=== PATIENT | female | born 1975 | race Caucasian/White ===

== ENCOUNTER 2019-02-14 13:27 | Emergency (ER) | payer OTHER ==
[2019-02-14 13:42] VITALS: BP 122/83; PULSE 73; TEMP 99; BMI 22.6
[2019-02-14] MEDS ORDERED: ACETAMINOPHEN 500 MG TABLET (FP) PO ONE (14:37)
[2019-02-14] MEDS ORDERED: ACETAMINOPHEN 325 MG TABLET (FP) ONE (15:02)
--- NOTE | 2019-02-14 15:34 | PDOC ---
History of Present Illness - General Chief Complaint: Vaginal Bleeding Stated Complaint: VAGINAL BLEEDING Time Seen by Provider: 02/14/19 14:27 History Source: Patient Exam Limitations: No Limitations - History of Present Illness Travel History: No Initial Comments: 02/14/19 15:34 43-year-old female approximately 7 weeks presents the emergency room for evaluation of vaginal spotting since . 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 Patient denies any urinary complaints, nausea, fever, chills or weakness. Patient also denies back pain presently. Timing/Duration: reports: constant Quality: reports: mild, cramping Abdominal Pain Onset Location: reports: suprapubic Pain Radiation: reports: no radiation Activities at Onset: reports: none Aggravating Factors: improves with: None Alleviating Factors: improves with: None Past History - Travel Traveled outside of the country in the last 30 days: No Close contact w/someone who was outside of country & ill: No - Past Medical History Allergies/Adverse Reactions: Allergies Allergy/AdvReac Type Severity Reaction Status Date / Time No Known Allergies Allergy Verified 02/14/19 13:42 Home Medications: Ambulatory Orders Levothyroxine [Synthroid -] 88 mcg PO DAILY 02/14/19 COPD: No Thyroid Disease: Yes - Suicide/Smoking/Psychosocial Hx Smoking History: Never smoked Have you smoked in the past 12 months: No Information on smoking cessation initiated: No Hx Alcohol Use: No Drug/Substance Use Hx: No Patient Lives Alone: No Lives with/in: spouse/SO Review of Systems - Review of Systems Able to Perform ROS?: Yes Constitutional: No: Symptoms Reported HEENTM: No: Symptoms Reported ABD/GI: Yes: Abdominal cramping : Yes: Discharge (vaginal spotting) Integumentary: No: Symptoms Reported Neurological: No: Symptoms reported *Physical Exam - Vital Signs Last Vital Signs Temp Pulse Resp BP Pulse Ox 99 F 73 18 122/83 100 02/14/19 13:40 02/14/19 13:40 02/14/19 13:40 02/14/19 13:40 02/14/19 13:40 - Physical Exam General Appearance: Yes: Nourished, Appropriately Dressed. No: Apparent Distress HEENT: negative: Pale Conjunctivae Neck: positive: Supple Respiratory/Chest: positive: Lungs Clear, Normal Breath Sounds. negative: Respiratory Distress, Accessory Muscle Use Cardiovascular: positive: Regular Rhythm, Regular Rate. negative: Murmur Female Pelvic Exam: positive: cervical os closed, vaginal bleeding (dark red/ brown in scant amount). negative: adnexal tenderness Gastrointestinal/Abdominal: negative: Soft, Tenderness Extremity: positive: Normal Inspection Integumentary: positive: Normal Color, Warm, Moist Neurologic: positive: Motor Strength 5/5 (ambulatory) ED Treatment Course - LABORATORY CBC & Chemistry Diagram: 02/14/19 15:00 02/14/19 15:00 - RADIOLOGY Radiology Studies Ordered: Category Date Time Status TRANSVAGINAL US PREG [US] Stat Ultrasound 02/14/19 14:32 Ordered Medical Decision Making - Medical Decision Making 02/14/19 15:18 cc: Vaginal spotting since now with lower abdominal pain. Approximate 7 weeks based on LMP. Patient has her first QU[facility]Y WORKER appointment this upcoming Friday at [facility] Exam no abdominal tenderness scant dark red/brown blood noted in vault no adnexal tenderness Plan: Labs, urine Tylenol and ultrasound ordered *DC/Admit/Observation/Transfer Diagnosis at time of Disposition: Threatened - Discharge Dispostion Disposition: HOME Condition at time of disposition: Stable - Referrals Referrals: Aayush Stewart MD [Primary Care Provider] - - Patient Instructions Printed Discharge Instructions: DI for Threatened Additional Instructions: Your Discharge Instructions: You must call primary care physician within 24 hours to arrange follow-up. Return to the Emergency Department with any new, persistent or worsening symptoms, for fever, chills, SOB, dizziness or any other concerning changes that may occur. Copies of the labs have been provided for the COMPOUNDING ASSISTANT appointment. - Post Discharge Activity
[2019-02-14 15:56] LABS: BASO % 0.3 % (0-2.0); EOS % 1.5 % (0-4.5); HEMATOCRIT 34.9 % (32.4-45.2); HEMOGLOBIN 11.7 GM/dL (10.7-15.3); LYMPH % 30.2 % (8-40); MCH 30.6 pg (25.7-33.7); MCHC 33.6 g/dl (32.0-36.0); MEAN CELL VOLUME 91.2 fl (80-96); MEAN PLT VOLUME 7.9 fl (7.5-11.1); MONO % 5.9 % (3.8-10.2); NEUT % 62.1 % (42.8-82.8); PLATELET COUNT 252 K/MM3 (134-434); RBC 3.83 M/mm3 (3.60-5.2); RDW 13.4 % (11.6-15.6); WHITE BLOOD COUNT 6.8 K/mm3 (4.0-10.0)
[2019-02-14 16:04] LABS: EPI CELLS 2.7 /HPF (0-5/HPF); HYALINE CASTS 0 /lpf (0-8); PH,URINE 6.5 (5.0-8.0); URINE APPEARANCE CLEAR; URINE BACTERIA 70.2 /hpf (NEGATIVE); URINE BILIRUBIN NEGATIVE (NEGATIVE); URINE COLOR YELLOW; URINE GLUCOSE (UA) NEGATIVE (NEGATIVE); URINE KETONE NEGATIVE (NEGATIVE); URINE LEUK ESTERASE NEGATIVE (NEGATIVE); URINE NITRITE NEGATIVE (NEGATIVE); URINE PROTEIN NEGATIVE (NEGATIVE); URINE RBC 7 /hpf (0-4); URINE UROBILINOGEN 0.2 mg/dL (0.2-1.0); URINE WBC 2 /hpf (0-5)
[2019-02-14 16:20] LABS: BILIRUBIN,TOTAL 0.4 mg/dL (0.2-1); BLOOD UREA NITROGEN 11.4 mg/dL (7-18); CALCIUM 9.5 mg/dL (8.5-10.1); CREATININE 0.9 mg/dL (0.55-1.3); POTASSIUM 3.8 mmol/L (3.5-5.1)
--- NOTE | 2019-02-14 17:47 | PDOC ---
*Physical Exam - Vital Signs Last Vital Signs Temp Pulse Resp BP Pulse Ox 99 F 73 18 122/83 100 02/14/19 13:40 02/14/19 13:40 02/14/19 13:40 02/14/19 13:40 02/14/19 13:40 ED Treatment Course - LABORATORY CBC & Chemistry Diagram: 02/14/19 15:00 02/14/19 15:00 - ADDITIONAL ORDERS Additional order review: Laboratory Results 02/14/19 02/14/19 02/14/19 15:00 15:00 15:00 Sodium 137 Potassium 3.8 Chloride 105 Carbon Dioxide 28 Anion Gap 4 L BUN 11.4 Creatinine 0.9 Est GFR (CKD-EPI)AfAm 90.13 Est GFR (CKD-EPI)NonAf 77.76 Random Glucose 122 H Calcium 9.5 Total Bilirubin 0.4 AST 17 ALT 25 Alkaline Phosphatase 49 Total Protein 8.0 Albumin 4.0 Beta HCG, Quant 4610.7 Urine Color Yellow Urine Appearance Clear Urine pH 6.5 Ur Specific [place] 1.008 L Urine Protein Negative Urine Glucose (UA) Negative Urine Ketones Negative Urine Blood 3+ H Urine Nitrite Negative Urine Bilirubin Negative Urine Urobilinogen 0.2 Ur Leukocyte Esterase Negative Urine WBC (Auto) 2 Urine RBC (Auto) 7 Urine Casts (Auto) 0 U Epithel Cells (Auto) 2.7 Urine Bacteria (Auto) 70.2 Blood Type O POSITIVE Antibody Screen Negative 02/14/19 15:00 RBC 3.83 MCV 91.2 MCHC 33.6 RDW 13.4 MPV 7.9 Neutrophils % 62.1 Lymphocytes % 30.2 Monocytes % 5.9 Eosinophils % 1.5 Basophils % 0.3 - Medications Given in the ED: ED Medications Discontinued Medications Generic Name Dose Route Start Last Admin Trade Name Freq PRN Reason Stop Dose Admin Acetaminophen 975 mg 02/14/19 14:37 02/14/19 15:00 Tylenol - PO 02/14/19 14:38 975 mg ONCE ONE Administration Medical Decision Making - Medical Decision Making 02/14/19 17:46 Patient endorsed to me to follow labs and ultrasound. 02/14/19 17:47 Laboratory Tests 02/14/19 02/14/19 15:00 15:00 WBC 6.8 Hgb 11.7 Hct 34.9 Plt Count 252 Sodium 137 Potassium 3.8 Chloride 105 Carbon Dioxide 28 Anion Gap 4 L BUN 11.4 Creatinine 0.9 Random Glucose 122 H Beta HCG, Quant 4610.7 UA negative Patient is pending ultrasound results 02/14/19 19:26 Patient Full Name: YONNY PATIÑO Patient Accession No: [id number] Patient : 1975 Reason for Exam: vag bleeding approx 5-6 weeks Referring Physician: OLEG WAKEFIELD Patient Name: HAROON BLANCAS PRELIMINARY REPORT FROM IMAGING MANAGER APPLICATION DEVELOPMENT EXAM: Ultrasound transvaginal (obstetric) and Duplex scan Pelvis (includes arterial venous) DATE: 2019-02-14 16:29:10 IMAGES: 29 HISTORY: vaginal bleeding IMPRESSION: Gestational sac seen with yolk sac, at cervical region. Sac size up to 14 mm. No pole seen. No solid adnexal mass seen. Appropriate arterial and venous waveforms at both ovaries. THIS DOCUMENT HAS BEEN ELECTRONICALLY SIGNED Chadwick Yoon MD 02/14/2019 19:12 EST M.D. Please call Imaging Receptionist Telephone Operator [phone] ([phone]) with questions. INTERPRETING RADIOLOGIST: Chadwick Yoon MD Electronically Signed: Feb 14, 2019 07:13PM EDT She has an appointment with her OB on February 16 at 9:30 AM. Will provide patient with COPIES of the labs and ultrasound report for presentation to the ADVERTISING ACCOUNT MANAGER. I discussed the physical exam findings, ancillary test results and final diagnoses with the patient. I answered all of the patient's questions. The patient was satisfied with the care received and felt comfortable with the discharge plan and treatment plan. The Patient agrees to follow up with the primary care physician within 24-72 hours. *DC/Admit/Observation/Transfer Diagnosis at time of Disposition: Threatened - Discharge Dispostion Disposition: HOME Condition at time of disposition: Stable - Referrals Referrals: Aayush Stewart MD [Primary Care Provider] - - Patient Instructions Printed Discharge Instructions: DI for Threatened Additional Instructions: Your Discharge Instructions: You must call primary care physician within 24 hours to arrange follow-up. Return to the Emergency Department with any new, persistent or worsening symptoms, for fever, chills, SOB, dizziness or any other concerning changes that may occur. Copies of the labs have been provided for the ADVERTISING ACCOUNT MANAGER appointment. - Post Discharge Activity
== END 2019-02-14 19:42 | disposition home or self-care (01) ==
LOC: JER 13:27
DX: O26.891 Other specified pregnancy related conditions, first trimester (principal); O20.0 Threatened abortion; Z3A.01 Less than 8 weeks gestation of pregnancy
CPT/HCPCS: 36415; 76817-TC; 80053; 81003; 84702; 85025; 86850; 86900; 86901; 87086; 99281-25

== ENCOUNTER 2019-09-09 10:08 | Emergency (ER) | payer OTHER ==
[2019-09-09 10:35] VITALS: BP 105/61; PULSE 79; TEMP 98.4; BMI 21.9
--- NOTE | 2019-09-09 11:30 | PDOC ---
History of Present Illness - General Chief Complaint: Vaginal Sxs Stated Complaint: VAGINAL PAIN Time Seen by Provider: 09/09/19 11:11 - History of Present Illness Initial Comments: Andrez Rogers is a 44yo woman with a PMH of hypothyroidism who presents with vaginal itching for several days. She reports that she went to her PMD yesterday and had a urine test sent, but she was not given any medications. She had continued itching and was unable to get an appointment with foam charger for over a week so came to the ED for evaluation. She denies any vaginal bleeding, dysuria, urinary frequency, urgency, or abdominal pain. She does note a slight increase in vaginal discharge, yellowish in color, but no unusual odor. She is sexually active with her only and has no concerns for STDs. She does not believe she could be as her LMP started on 08/23/19. She has no other current complaints. Past History - Past Medical History Allergies/Adverse Reactions: Allergies Allergy/AdvReac Type Severity Reaction Status Date / Time No Known Allergies Allergy Verified 02/14/19 13:42 Home Medications: Ambulatory Orders Levothyroxine [Synthroid -] 88 mcg PO DAILY 02/14/19 COPD: No Thyroid Disease: Yes - Immunization History Immunization Up to Date: No - Psycho Social/Smoking Cessation Hx Smoking History: Never smoked Have you smoked in the past 12 months: No Information on smoking cessation initiated: No Hx Alcohol Use: No Drug/Substance Use Hx: No Review of Systems - Review of Systems Comments:: General: No fevers, no chills, no weight or appetite change, no malaise HEENT: No changes in vision, no changes in hearing, no congestion, no sore throat CV: No chest pain, no palpitations, no LE edema Pulm: No SOB, no cough, no wheezing GI: No nausea or vomiting, no change in bowel habits, no melena : No frequency, no urgency, no dysuria. +Itching, See HPI Musc: No back pain, no joint swelling, no recent injury Skin: No rash, no lesions, no erythema Endo: No excessive thirst, no heat/cold intolerance Heme: No unusual bruising or bleeding, no swollen glands Neuro: No syncope, no numbness/tingling, no focal weakness Vasc: No claudication Psych: No recent change in mood, no SI or HI *Physical Exam - Vital Signs Last Vital Signs Temp Pulse Resp BP Pulse Ox 98.4 F 79 18 105/61 100 09/09/19 10:33 09/09/19 10:33 09/09/19 10:33 09/09/19 10:33 09/09/19 10:33 - Physical Exam General: Comfortable, no acute distress HEENT: PERRL, EOMI, MMM, voice normal, normal neck ROM Cards: RRR, no murmur appreciated Pulm: Comfortable on room air Abd: Soft, nontender, nondistended : No CVA tenderness. Normal external genitalia. Thick white discharge in vaginal canal. No adnexal tenderness or CMT. No bleeding, no lesions. Ext: Atraumatic. No LE edema. ROM intact. WWP Neuro: A&Ox3, CN grossly intact, normal speech, motor/sensory grossly intact and symmetric Psych: Mood appropriate to situation Medical Decision Making - Medical Decision Making 09/09/19 11:30 Andrez Rogers is a 44yo woman with a PMH of hypothyroidism who presents with vaginal itching for several days. She reportedly had a UA completed yesterday that did not show infection. She has no concerns for STDs and denies any associated symptoms. - Thick white discharge on vaginal exam c/w yeast infection. Fluconazole ordered - UA, UCx sent - Pt has gynecology appointment in one week. Will most likely be able to d/c home to follow up with gyne after urine results returned 09/09/19 12:36 - UA w/ bacteria but no WBC or leuk esterase. Will wait for culture to treat - Updated pt. Feels comfortable going home. Will d/c to follow up with her regular foam charger next week. Will be called if urine culture indicates antibiotics. Pt understands and agrees with this plan Discussed with Dr Katerine Hodgson PGY2 Discharge - Discharge Information Problems reviewed: Yes Clinical Impression/Diagnosis: Vaginal yeast infection Condition: Stable Disposition: HOME - Admission No - Follow up/Referral Referrals: Doris Boles, AFFILIATE MARKETING SPECIALIST [Primary Care Provider] - - Patient Discharge Instructions Patient Printed Discharge Instructions: DI for Vaginal Yeast Infection Additional Instructions: Discharge Instructions: You were seen in the emergency department for vaginal itching. You were diagnosed with a yeast infection and given an antifungal medication. You should not need any additional treatment, and your symptoms should resolve within the next 2-3 days. Please follow up with your foam charger at your schedule appointment next week. Seek medical care for any worsening symptoms, continued itching, lack of improvement after 4-5 days, abdominal pain, fevers/chills or any other medical emergency. - Post Discharge Activity
[2019-09-09] MEDS ORDERED: FLUCONAZOLE 150 MG TABLET PO ONE ×2 (11:41→13:14)
[2019-09-09] MEDS: FLUCONAZOLE 50 MG TABLET PO ONE ×2 (11:45→13:17)
[2019-09-09 12:20] LABS: EPI CELLS 9.2 /HPF (0-5/HPF); HYALINE CASTS 2 /lpf (0-8); PH,URINE 8.5 (5.0-8.0); URINE APPEARANCE CLEAR; URINE BACTERIA 410.2 /hpf (NEGATIVE); URINE BILIRUBIN NEGATIVE (NEGATIVE); URINE COLOR YELLOW; URINE GLUCOSE (UA) NEGATIVE (NEGATIVE); URINE KETONE NEGATIVE (NEGATIVE); URINE LEUK ESTERASE TRACE (NEGATIVE); URINE NITRITE NEGATIVE (NEGATIVE); URINE PROTEIN NEGATIVE (NEGATIVE); URINE RBC 1 /hpf (0-4); URINE UROBILINOGEN 0.2 mg/dL (0.2-1.0); URINE WBC 2 /hpf (0-5)
--- NOTE | 2019-09-09 16:21 | PDOC ---
Documentation entered by Lacey Walker SCRIBE, acting as scribe for Jeffery Garcias MD. Jeffery Garcias MD: This documentation has been prepared by the Aaron jeffers Brenda, SCRIBE, under my direction and personally reviewed by me in its entirety. I confirm that the documentation accurately reflects all work, treatment, procedures, and medical decision making performed by me. Attending Attestation - Resident Resident Name: GokulCarrie - ED Attending Attestation I have performed the following: I have examined & evaluated the patient, The case was reviewed & discussed with the resident, I agree w/resident's findings & plan, Exceptions are as noted - HPI HPI: 09/09/19 11:38 The patient is a 44 year old female with a significant PMH of thyroid disease who presents to the ED with The patient denies chest pain, shortness of breath, headache and dizziness. Denies fever, chills, nausea, vomiting, diarrhea and constipation. Denies dysuria, frequency, urgency and hematuria. Allergies: NKA Past surgical history: Social history: No reported hx of tobacco use, alcohol use or illicit drug use. PCP: Doris Boles - Physicial Exam PE: 09/09/19 16:21 Vitals: Triage Vital signs reviewed General Appearance: No acute distress, well nourished well developed, Head: Atraumatic, Cardiac: Regular rate and rhythym, no murmurs, no rubs, no gallops, Lungs: Clear to auscultation bilateral, good air movement bilaterally, Abdomen: Soft, non distended, normal bowel sounds, non tender to palpation Extremities: Full range of motion to all extremities, no cyanosis, clubbing, or edema Psych: Normal mood, normal affect - Medical Decision Making 09/09/19 16:21 Well-appearing no apparent distress history and examination consistent with vulvar candidiasis patient treated in the ED with follow-up with her OB this week Findings, the need for follow-up and strict return instructions discussed with patient.
== END 2019-09-09 13:17 | disposition home or self-care (01) ==
LOC: JER 10:08
DX: B37.3 Candidiasis of vulva and vagina (principal); E03.9 Hypothyroidism, unspecified
CPT/HCPCS: 81003; 87086; 99282-25

== ENCOUNTER 2022-10-04 14:30 | Emergency (ER) | payer OTHER ==
[2022-10-04 14:50] VITALS: BP 107/77; PULSE 87; RESP 20; TEMP 98.2; BMI 23.2
[2022-10-04 15:09] LABS: PH,URINE 7.5 (5.0-8.0); URINE APPEARANCE CLEAR; URINE BILIRUBIN NEGATIVE (NEGATIVE); URINE COLOR YELLOW; URINE GLUCOSE (UA) NEGATIVE (NEGATIVE); URINE KETONE NEGATIVE (NEGATIVE); URINE LEUK ESTERASE NEGATIVE (NEGATIVE); URINE NITRITE NEGATIVE (NEGATIVE); URINE PROTEIN NEGATIVE (NEGATIVE); URINE UROBILINOGEN 0.2 mg/dL (0.2-1.0)
[2022-10-04 15:11] LABS: HCG,QUALITATIVE URINE Negative
[2022-10-04] MEDS ORDERED: metroNIDAZOLE 500 MG TABLET PO ONE ×2 (15:52→15:53)
[2022-10-04] MEDS ORDERED: metroNIDAZOLE 250 MG TABLET ONE (16:04)
== END 2022-10-04 16:30 | disposition home or self-care (01) ==
LOC: JER 14:30 → JERFT 14:30
DX: N89.8 Other specified noninflammatory disorders of vagina (principal); L29.2 Pruritus vulvae
CPT/HCPCS: 36415; 81003; 84703; 87086; 87491; 87591; 87661; 99283-25

== ENCOUNTER 2024-03-12 20:44 | Emergency (ER) | payer OTHER ==
[2024-03-12 20:53] VITALS: BP 116/73; PULSE 88; RESP 19; TEMP 99.9; BMI 21.9
[2024-03-12] MEDS ORDERED: IBUPROFEN 400 MG TABLET (FP) PO ONE (22:11)
[2024-03-12] MEDS ORDERED: CEPHALEXIN MONOHYDRATE 500 MG CAPSULE (UD) ONE (22:11)
[2024-03-12] MEDS ORDERED: SULFAMETHOXAZOLE/TRIMETHOPRIM 800MG/160MG D.S. TABLET ONE (22:11)
[2024-03-12] MEDS: SULFAMETHOXAZOLE/TRIMETHOPRIM 800MG/160MG D.S. TABLET PO ONE (22:14)
[2024-03-12] MEDS: IBUPROFEN 400 MG TABLET (FP) PO ONE (22:14)
[2024-03-12] MEDS: CEPHALEXIN MONOHYDRATE 500 MG CAPSULE (UD) PO ONE (22:15)
== END 2024-03-12 22:29 | disposition home or self-care (01) ==
LOC: JER 20:44
DX: L03.032 Cellulitis of left toe (principal)
CPT/HCPCS: 99283-25